=== PATIENT | male | born 1970 | race Caucasian/White ===

== ENCOUNTER 2023-10-10 17:41 | Emergency (ER) | payer OTHER ==
[2023-10-10] MEDS ORDERED: Zofran 4 MG/2 ML VIAL IV ONE (17:45)
[2023-10-10] MEDS ORDERED: MORPHINE SULFATE 4 MG INJ IV ONE (17:45)
[2023-10-10] MEDS ORDERED: MORPHINE SULFATE 4 MG INJ ONE (17:54)
[2023-10-10] MEDS ORDERED: Zofran 4 MG/2 ML VIAL ONE (17:54)
[2023-10-10 17:58] VITALS: TEMP 97.8
--- NOTE | 2023-10-10 19:30 | XRAY ---
CLINICAL HISTORY:pain COMPARISON:None TECHNIQUE:X-ray right shoulder joint, AP view, AP view with internal rotation and Y views have been done. FINDINGS: Marked dislocation of acromio-clavicular joint is noted wih surrounding soft tissue edema. No acute fracture is noted. Gleno-humeral articulation is intact., no dislocation. No lytic or sclerotic bony lesion seen. Mild degenerative changes are noted in the form of tiny osteophyte formation. Visualized lungs appear unremarkable. IMPRESSION: Marked dislocation of right acromioclavicular joint with surrounding soft tissue edema. Clavicle displaced superiorly by 1.5 cm. No acute fracture seen. Intact gleno-humeral articular articulation is noted, no shoulder joint dislocation seen. DISCLAIMER:A subtle bone abnormality or fracture may not be readily apparent on x-rays, thus clinical correlation and further imaging including follow up CT, MRI, or follow up x-rays are advised as needed. Electronically Signed by: John Paul Carrion MD. (10/10/2023 19:26:27 EST)
[2023-10-10 19:37] VITALS: O2SAT 99
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
[2023-10-10] MEDS ORDERED: Hydromorphone 1 mg/ml Injection IV ONE (19:38)
--- NOTE | 2023-10-10 19:38 | XRAY ---
CLINICAL HISTORY:fall COMPARISON:None TECHNIQUE:X-ray right clavicle, AP view along with 15 degrees angle have been acquired. FINDINGS: Marked dislocation of acromio-clavicular joint is noted with surrounding soft tissue edema. No acute fracture seen. Gleno-humeral articulation is intact. No lytic or sclerotic bony lesion seen. Normal bone mineralization. Mild degenerative changes are noted in the form of tiny osteophyte formation. No consolidation or soft tissue nodularity seen in acquired lung parenchyma. An atelactatic band is seen in left upper lobe. IMPRESSION: Marked dislocation of right acromio-clavicular joint with surrounding soft tissue edema. No acute fracture seen. DISCLAIMER:A subtle bone abnormality or fracture may not be readily apparent on x-rays, thus clinical correlation and further imaging including follow up CT, MRI, or follow up x-rays are advised as needed. Electronically Signed by: John Paul Carrion MD. (10/10/2023 19:33:21 EST)
[2023-10-10] MEDS ORDERED: Hydromorphone 1 mg/ml Injection ONE (19:42)
[2023-10-10] MEDS ORDERED: Sodium Chloride 0.9% 1000 ML 1,000 ML ONE (19:43)
[2023-10-10] MEDS ORDERED: Sodium Chloride 0.9% 1000 ML 1,000 ML IV STA ×2 (19:56→19:58)
[2023-10-10 20:05] VITALS: RESP 22
[2023-10-10] MEDS ORDERED: NORCO 5/325 MG PO ONE (20:18)
[2023-10-10 20:25] VITALS: BP 129/81; PULSE 80
[2023-10-10] MEDS ORDERED: NORCO 5/325 MG ONE (20:33)
--- NOTE | 2023-10-10 21:09 | XRAY ---
Indication: Pain following fall. Comparison: None Portable chest hyperinflated and clear. Heart and mediastinal structures within normal limits. Bony thorax intact. Right shoulder reported separately.
== END 2023-10-10 20:36 | disposition home or self-care (01) ==
LOC: ED 17:41
DX: S43.101A Unspecified dislocation of right acromioclavicular joint, initial encounter (principal); S40.011A Contusion of right shoulder, initial encounter; V29.91XA Electric (assisted) bicycle rider (driver) (passenger) injured in unspecified traffic accident, initial encounter; Z28.310 Unvaccinated for COVID-19; Z72.0 Tobacco use; Z79.891 Long term (current) use of opiate analgesic
CPT/HCPCS: 36000; 71045; 73000; 73030; 96374; 96375; 99284; J1170; J2270; J2405; L3650; A9270-GY

== ENCOUNTER 2024-05-22 13:08 | Emergency (ER) | payer OTHER ==
--- NOTE | 2024-05-22 13:13 | ERPHSYRPT ---
- History of Present Illness Time Seen by Provider: 05/22/24 13:13 Historian: patient, family Exam Limitations: no limitations Physician History: This is a 53-year-old white male patient of hand candle dipper Dr. Esquivel and presents with at least a couple of months history of intermittent sharp nonradiating left anterior chest pain. Today, the chest pain became more intense and constant. He contacted his hand candle dipper and the hand candle dipper told him to come to the emergency department for evaluation. Patient admits to stopping his medication for at least 2 months. Patient states he has coronary artery disease, COPD and arthritis. Patient states "I am not 1 to take medication". Patient is a daily smoker of tobacco cigarettes and occasionally uses marijuana. He rarely consumes alcohol. He does not recall all his medications. He does recall that he is supposed to be taking an anticoagulation medication plus a baby aspirin each day. He has not been taking these medications. The patient states that currently, the chest pain has completely resolved. Timing/Duration: worse (Symptoms became more intense and constant), other (Patient states he has had intermittent episodes of sharp left anterior chest pain over the last couple of months) Quality: sharpness Location: other (Left anterior chest) Chest Pain Radiation: no radiation Severity of Pain-Max: moderate Severity of Pain-Current: none Modifying Factors: Improves With: nothing Associated Symptoms: denies symptoms Prior Chest Pain/Cardiac Workup: cardiac cath, heart attack Nitro Today/Relief: no nitro taken today Aspirin Treatment Today: no aspirin today Allergies/Adverse Reactions: No Known Drug Allergies Allergy (Verified 10/10/23 17:51) Home Medications: No Reportable Medications [No Reported Medications] 05/22/24 [History] Hx Tetanus, Diphtheria Vaccination/Date Given: Yes Hx Influenza Vaccination/Date Given: No Hx Pneumococcal Vaccination/Date Given: Yes Travel Risk - International Travel Have you traveled outside of the country in past 3 weeks: No - Review of Systems Constitutional: No Symptoms Eyes: No Symptoms Ears, Nose, & Throat: No Symptoms Respiratory: No Symptoms Cardiac: Chest Pain (Resolved completely) Abdominal/Gastrointestinal: No Symptoms Genitourinary Symptoms: No Symptoms Musculoskeletal: No Symptoms Skin: No Symptoms Neurological: No Symptoms Psychological: No Symptoms Endocrine: No Symptoms Hematologic/Lymphatic: No Symptoms Immunological/Allergic: No Symptoms All Other Systems: Reviewed and Negative - Past Medical History Pertinent Past Medical History: Yes Neurological History: No Pertinent History ENT History: No Pertinent History Cardiac History: Coronary Artery Disease, Other Respiratory History: COPD Endocrine Medical History: No Pertinent History Musculoskeletal History: Arthritis GI Medical History: No Pertinent History History: No Pertinent History Psycho-Social History: No Pertinent History Male Reproductive Disorders: No Pertinent History - Past Surgical History Past Surgical History: Yes Neuro Surgical History: No Pertinent History Cardiac: No Pertinent History Respiratory: No Pertinent History Gastrointestinal: No Pertinent History Genitourinary: No Pertinent History Musculoskeletal: Orthopedic Surgery Male Surgical History: No Pertinent History Other Surgical History: right arm tendon surgery,left eye lens replacement - Social History Smoking Status: Current every day smoker How long have you smoked: yrs Exposure to second hand smoke: Yes Drug Use: marijuana Patient Lives Alone: No - Nursing Vital Signs Nursing Vital Signs: Initial Vital Signs Temperature 98.1 F 05/22/24 13:09 Pulse Rate 77 05/22/24 13:09 Respiratory Rate 18 05/22/24 13:09 Blood Pressure 137/94 05/22/24 13:09 O2 Sat by Pulse Oximetry 97 05/22/24 13:09 Pain Scale Pain Intensity 3 - Physical Exam General Appearance: no apparent distress, alert, anxiety Eye Exam: PERRL/EOMI, eyes nml inspection Ears, Nose, Throat Exam: normal ENT inspection, moist mucous membranes Neck Exam: normal inspection, non-tender, supple, full range of motion Respiratory Exam: normal breath sounds, lungs clear, airway intact, No chest tenderness, No respiratory distress Cardiovascular Exam: regular rate/rhythm, normal heart sounds, normal peripheral pulses Gastrointestinal/Abdomen Exam: soft, normal bowel sounds, No tenderness Rectal Exam: not done Back Exam: normal inspection, normal range of motion, No CVA tenderness, No vertebral tenderness Extremity Exam: normal inspection, normal range of motion, pelvis stable Neurologic Exam: alert, oriented x 3, cooperative, cab starter II-XII nml as tested, nml cerebellar function, nml station & gait, sensation nml Skin Exam: normal color, warm, dry Lymphatic Exam: No adenopathy SpO2 Interpretation: normal O2 Delivery: Room Air - Course Nursing assessment & vital signs reviewed: Yes EKG Interpreted by Me: RATE (75), Sinus Rhythm, NORMAL AXIS, NORMAL INTERVALS, NORMAL QRS, NORMAL ST-T, Other (No acute ischemic changes on today's twelve-lead EKG. QTc is 430) Ordered Tests: Active Orders 24 hr Category Date Time Status Body Shop Technician STAT Care 05/22/24 13:27 Active EKG-ER Only STAT Care 05/22/24 13:26 Active IV Insertion STAT Care 05/22/24 13:26 Active Pulse Oximetry (ED) STAT Care 05/22/24 13:26 Active CHEST 1 VIEW (PORTABLE) Stat Exams 05/22/24 14:32 Completed CBC W DIFF Stat Lab 05/22/24 13:15 Completed CMP Stat Lab 05/22/24 13:15 Completed D-DIMER QUANTITATIVE Stat Lab 05/22/24 13:15 Completed MAGNESIUM Stat Lab 05/22/24 13:15 Completed NT PRO BNPII Stat Lab 05/22/24 13:30 Completed PROTIME WITH INR Stat Lab 05/22/24 13:15 Completed TROPONIN Q4H Lab 05/22/24 13:30 Completed TROPONIN Q4H Lab 05/22/24 15:25 Completed TROPONIN Q4H Lab 05/22/24 21:30 Ordered Medication Summary Discontinued Medications Generic Name Dose Route Start Last Admin Trade Name Dipakq PRN Reason Stop Dose Admin Aspirin 324 mg 05/22/24 13:26 05/22/24 13:34 Aspirin 81 Mg Tab.Chew PO 05/22/24 13:27 324 mg STAT ONE Administration Aspirin Confirm 05/22/24 13:33 Aspirin 81 Mg Tab.Chew Administered 05/22/24 13:34 Dose 324 mg .ROUTE .STK-MED ONE Morphine Sulfate 4 mg 05/22/24 13:47 05/22/24 13:52 Morphine Sulfate 4 Mg/Ml Injection IV 05/22/24 13:48 4 mg STAT ONE Administration Morphine Sulfate Confirm 05/22/24 13:51 Morphine Sulfate 4 Mg/Ml Injection Administered 05/22/24 13:52 Dose 4 mg .ROUTE .STK-MED ONE Ondansetron HCl 4 mg 05/22/24 13:47 05/22/24 13:53 Ondansetron Hcl 4 Mg/2 Ml Vial IV 05/22/24 13:48 4 mg STAT ONE Administration Ondansetron HCl Confirm 05/22/24 13:51 Ondansetron Hcl 4 Mg/2 Ml Vial Administered 05/22/24 13:52 Dose 4 mg .ROUTE .STK-MED ONE Lab/Rad Data: Laboratory Result Diagrams 05/22/24 13:15 05/22/24 13:15 Laboratory Results 05/22/24 05/22/24 05/22/24 Range/Units 15:25 13:30 13:15 WBC (4.23-9.07) x10^3/uL RBC (4.63-6.08) x10^6/uL Hgb (13.7-17.5) g/dL Hct (40.1-51.0) % MCV (79.0-92.2) fL MCH (25.7-32.2) pg MCHC (32.3-36.5) g/dL RDW (11.6-14.4) % Plt Count (163-337) x10^3/uL MPV (9.4-12.4) fL Gran % (34.0-67.9) % Immature Gran % (Auto) (0.001-0.429) % Nucleat RBC Rel Count (0.00-0.2) % Eos # (Auto) (0.04-0.54) x10^3/uL Immature Gran # (Auto) (0.001-0.031) x10^3u/L Absolute Lymphs (auto) (1.32-3.57) x10^3/uL Absolute Monos (auto) (0.30-0.82) x10^3/uL Absolute Nucleated RBC (0.00-0.012) x10^3u/L Lymphocytes % (21.8-53.1) % Monocytes % (5.3-12.2) % Eosinophils % (0.8-7.0) % Basophils % (0.2-1.2) % Absolute Granulocytes (1.78-5.38) x10^3/uL Basophils # (0.01-0.08) x10^3/uL PT 11.1 (9.4-12.5) SECONDS INR 1.02 (0.8-3.0) D-Dimer 0.21 (0.0-0.50) mg/L Sodium (135-145) mmol/L Potassium (3.5-5.1) mmol/L Chloride (98-107) mmol/L Carbon Dioxide (22-30) mmol/L Anion Gap (5-15) MEQ/L BUN (9-20) mg/dL Creatinine (0.66-1.25) mg/dL Estimated GFR ML/MIN Glucose (74-106) mg/dL Calcium (8.4-10.2) mg/dL Magnesium (1.6-2.3) mg/dL Total Bilirubin (0.2-1.3) mg/dL AST (17-59) U/L ALT (0-50) U/L Alkaline Phosphatase (38-126) U/L Troponin I < 0.012 < 0.012 (0.000-0.033) ng/mL NT-Pro-B Natriuret Pep 44.7 (<300) pg/mL Serum Total Protein (6.3-8.2) g/dL Albumin (3.5-5.0) g/dL 05/22/24 05/22/24 Range/Units 13:15 13:15 WBC 5.8 (4.23-9.07) x10^3/uL RBC 4.65 (4.63-6.08) x10^6/uL Hgb 14.2 (13.7-17.5) g/dL Hct 42.8 (40.1-51.0) % MCV 92.0 (79.0-92.2) fL MCH 30.5 (25.7-32.2) pg MCHC 33.2 (32.3-36.5) g/dL RDW 13.1 (11.6-14.4) % Plt Count 200 (163-337) x10^3/uL MPV 9.7 (9.4-12.4) fL Gran % 48.2 (34.0-67.9) % Immature Gran % (Auto) 0.0 L (0.001-0.429) % Nucleat RBC Rel Count 0.0 (0.00-0.2) % Eos # (Auto) 0.25 (0.04-0.54) x10^3/uL Immature Gran # (Auto) 0.00 L (0.001-0.031) x10^3u/L Absolute Lymphs (auto) 2.26 (1.32-3.57) x10^3/uL Absolute Monos (auto) 0.45 (0.30-0.82) x10^3/uL Absolute Nucleated RBC 0.00 (0.00-0.012) x10^3u/L Lymphocytes % 39.0 (21.8-53.1) % Monocytes % 7.8 (5.3-12.2) % Eosinophils % 4.3 (0.8-7.0) % Basophils % 0.7 (0.2-1.2) % Absolute Granulocytes 2.79 (1.78-5.38) x10^3/uL Basophils # 0.04 (0.01-0.08) x10^3/uL PT (9.4-12.5) SECONDS INR (0.8-3.0) D-Dimer (0.0-0.50) mg/L Sodium 138 (135-145) mmol/L Potassium 3.4 L (3.5-5.1) mmol/L Chloride 104 (98-107) mmol/L Carbon Dioxide 27 (22-30) mmol/L Anion Gap 11.0 (5-15) MEQ/L BUN 22 H (9-20) mg/dL Creatinine 0.56 L (0.66-1.25) mg/dL Estimated GFR 118.6 ML/MIN Glucose 125 H (74-106) mg/dL Calcium 8.8 (8.4-10.2) mg/dL Magnesium 2.1 (1.6-2.3) mg/dL Total Bilirubin 1.60 H (0.2-1.3) mg/dL AST 27 (17-59) U/L ALT 20 (0-50) U/L Alkaline Phosphatase 58 (38-126) U/L Troponin I (0.000-0.033) ng/mL NT-Pro-B Natriuret Pep (<300) pg/mL Serum Total Protein 6.8 (6.3-8.2) g/dL Albumin 4.1 (3.5-5.0) g/dL - Progress Progress: improved, re-examined Air Movement: good Progress Note: 05/22/24 14:01 My medical decision making in the assignment of moderate complexity to this patient's medical issue today is based on review of the patient's past medical history, review the patient's medication list, review patient drug allergy list, history of present illness and physical findings on examination. The workup today includes intravenous line placement, twelve-lead EKG, aspirin, troponin level, D-dimer level, BNP, PT/INR, magnesium level, CBC, CMP level. Depending on the results of the D-dimer, we will either perform a chest x-ray or CT scanning of the chest with contrast. Differential diagnosis includes was not limited to myocardial infarction, pulmonary embolus, CHF exacerbation, electrolyte abnormalities, hypertension, arrhythmia 05/22/24 15:48 I interpreted the patient's laboratory data results. Based on the patient's laboratory data results, there is no evidence of any acute, emergent medical issue. Repeat twelve-lead EKG was performed on 05/22/2024 at 1533. The patient has a heart rate of 76 and it is normal sinus rhythm. There is borderline left axis deviation. There is normal intervals and normal QRS. There is no evidence of any acute ischemia. The QTc measures 460. 05/22/24 15:50 I interpreted the patient's preliminary report of his chest x-ray. There is no evidence of any acute cardiopulmonary process. 05/22/24 16:08 The repeat troponin level is normal. Patient has no chest pain. We will discharge him to home. Blood Culture(s) Obtained: No Antibiotics given: No Counseled pt/family regarding: lab results, diagnosis, need for follow-up, rad results Medical Desision Making - Independent Historian Additional History obtained from: Spouse - Diagnostic Testing Diagnostic test were ordered, analyzed, and reviewed by me: Yes Radiological Interpretation: Interpreted by me, Teleradiologist Report - Risk of complications Low Risk: Low risk of morbidity from additional dx testing or treatment - Departure Departure Disposition: Home Clinical Impression: Nonspecific chest pain, Noncompliance with medication regimen Condition: Stable Critical Care Time: No Referrals: MARTHA GARCIA [Primary Care Provider] - Follow up/PCP as directed Additional Instructions: Call your hand candle dipper and primary care providers tomorrow morning, 05/23/2024, to make arrangements to be seen in the next 2 to 3 days so you can be placed back on your medications and be evaluated by your hand candle dipper and primary care provider.
[2024-05-22 13:15] VITALS: TEMP 98.1
[2024-05-22 13:22] VITALS: O2SAT 98
[2024-05-22] MEDS ORDERED: BABY ASPIRIN 81 MG CHEW ONE (13:33)
[2024-05-22] MEDS: BABY ASPIRIN 81 MG CHEW PO ONE (13:34)
[2024-05-22 13:36] LABS: Absolute Neutrophil Ct (ANC) 2.79 x10^3/uL (1.78-5.38); BASOPHIL % 0.7 % (0.2-1.2); Basophil (Absolute #) 0.04 x10^3/uL (0.01-0.08); Eosinophil % 4.3 % (0.8-7.0); Eosinophil (Absolute #) 0.25 x10^3/uL (0.04-0.54); Hematocrit 42.8 % (40.1-51.0); Hemoglobin 14.2 g/dL (13.7-17.5); Lymphocyte (Absolute #) 2.26 x10^3/uL (1.32-3.57); Mean Corpuscular Hemoglobin 30.5 pg (25.7-32.2); Mean Corpuscular Hgb Concent. 33.2 g/dL (32.3-36.5); Mean Platelet Volume 9.7 fL (9.4-12.4); Monocyte (Absolute #) 0.45 x10^3/uL (0.30-0.82); Monocytes % 7.8 % (5.3-12.2); Neutrophil % 48.2 % (34.0-67.9); Platelet Count 200 x10^3/uL (163-337); Red Blood Count 4.65 x10^6/uL (4.63-6.08); Red Cell Distribution Width 13.1 % (11.6-14.4); White Blood Count 5.8 x10^3/uL (4.23-9.07)
[2024-05-22 13:50] LABS: ALBUMIN 4.1 g/dL (3.5-5.0); BILIRUBIN,TOTAL 1.6 mg/dL (0.2-1.3); Calcium 8.8 mg/dL (8.4-10.2); Creatinine 1 0.56 mg/dL (0.66-1.25); EST GLOMERULAR FILTRATION RATE 118.6 ML/MIN; MAGNESIUM 2.1 mg/dL (1.6-2.3); Potassium 3.4 mmol/L (3.5-5.1); Total Protein 6.8 g/dL (6.3-8.2)
[2024-05-22 13:51] LABS: D-DIMER QUANTITATIVE 0.21 mg/L (0.0-0.50); INR 1.02 (0.8-3.0); PROTIME 11.1 SECONDS (9.4-12.5)
[2024-05-22] MEDS ORDERED: Zofran 4 MG/2 ML VIAL ONE (13:51)
[2024-05-22] MEDS ORDERED: MORPHINE SULFATE 4 MG INJ ONE (13:51)
[2024-05-22] MEDS: MORPHINE SULFATE 4 MG INJ IV ONE (13:52)
[2024-05-22] MEDS: Zofran 4 MG/2 ML VIAL IV ONE (13:53)
[2024-05-22 14:02] LABS: NT PRO BNPII 44.7 pg/mL (<300); TROPONIN < 0.012 ng/mL (0.000-0.033)
[2024-05-22 14:16] VITALS: BP 137/89; PULSE 75; RESP 16
--- NOTE | 2024-05-22 15:05 | XRAY ---
Indication: Chest pain. Short of breath. Hypertension. Comparison: October 10, 2023 Portable chest again hyperinflated and clear. Heart not enlarged. Bony thorax intact again with chronic right acromioclavicular separation. No new/acute findings.
== END 2024-05-22 16:32 | disposition home or self-care (01) ==
LOC: ED 13:08
DX: R07.9 Chest pain, unspecified (principal); Z91.148 Patient's other noncompliance with medication regimen for other reason; Z72.0 Tobacco use
CPT/HCPCS: 36000; 36415; 71045; 80053; 83735; 83880; 84484; 85025; 85379; 85610; 93005; 93041; 94760; 96374; 96375; 99284; J2270; J2405; A9270-GY